=== PATIENT | male | born 1975 | race Caucasian/White ===

== ENCOUNTER 2017-02-07 18:25 | Emergency (ER) ==
[2017-02-07 18:31] VITALS: BP 157/89; TEMP 98.1; BMI 31.3
--- NOTE | 2017-02-07 18:43 | ED.PDOC ---
General ED Provider: Dr. VANESSA CAMPBELL Chief Complaint: Foot Pain/Injury Stated Complaint: RIGHT FOOT PAIN Time Seen by Physician: 18:30 (RN AT BEDSIDE AT ALL TIMES) Mode of Arrival: Walk-In Information Source: Patient Exam Limitations: No limitations Nursing and Triage Documentation Reviewed and Agree: Yes Musculoskeletal Complaint Exam - Ankle/Foot Complaint/Exam Location of Injury: Reports: Right, Foot Mechanism of Injury: Reports: Trauma (BLUNT FORCE) Onset/Duration: KICKED SOMETHING IN THE POOL HAS PAINX 2 DAYS Symptoms Are: Reports: Still present Onset of Pain: Reports: Immediate Initial Severity: Mild Current Severity: Mild Location: Reports: Discrete (BIG TOE DORAL FOOT ANKLE NOT INVOLVED ) Character: Reports: Dull Alleviating: Reports: Rest, Position Aggravating: Reports: Movement Able to Bear Weight: Yes Associated Signs and Symptoms: Denies: Swelling, Redness, Bruising, Fever, Weakness, Numbness, Tingling Achilles Tendon Abnormality: No Differential Diagnosis: Closed Fracture, Sprain, Strain Review of Systems - Review Of Systems Constitutional: Reports: No symptoms Eyes: Reports: No symptoms Ears, Nose, Mouth, Throat: Reports: No symptoms Respiratory: Reports: No symptoms Cardiac: Reports: No symptoms GI: Reports: No symptoms : Reports: No symptoms Musculoskeletal: Reports: Other (FOOT PAIN) Skin: Reports: No symptoms Neurological: Reports: No symptoms Endocrine: Reports: No symptoms Hematologic/Lymphatic: Reports: No symptoms All Other Systems: Reviewed and Negative Past Medical History - Past Medical History Previously Healthy: Yes Endocrine: Reports: None Cardiovascular: Reports: None Respiratory: Reports: None Hematological: Reports: None Gastrointestinal: Reports: None Genitourinary: Reports: None Neuro/Psych: Reports: None Musculoskeletal: Reports: None Cancer: Reports: None - Surgical History General Surgical History: Reports: None - Family History Family History: Reports: None - Social History Smoking Status: Current every day smoker, Heavy tobacco smoker Hx Substance Use: No Alcohol Screening: Occasionally - Immunizations Tetanus Shot up to Date: (UNKNOWN) Physical Exam - Physical Exam Appearance: Well-appearing, No pain distress, Well-nourished Eyes: CARLOS, EOMI, Conjunctiva clear ENT: Ears normal, Nose normal, Oropharynx normal Respiratory: Airway patent, Breath sounds clear, Breath sounds equal, Respirations nonlabored Cardiovascular: RRR, Pulses normal, No rub, No murmur GI/: Soft, Nontender, No masses, Bowel sounds normal, No Organomegaly Musculoskeletal: Limited ROM (RIGHT FOOT) Skin: Warm, Dry, Normal color Neurological: Sensation intact, Motor intact, Reflexes intact, Cranial nerves intact, Alert, Oriented Psychiatric: Affect appropriate, Mood appropriate Critical Care Note - Critical Care Note Total Time (mins): 0 Course - Course Orders, Labs, Meds: Orders Category Date Time Status RIP [ED RIP WRAP] .ONCE EMERGENCY 02/07/17 18:40 Ordered FOOT, RIGHT 3 VIEWS Stat RADS 02/07/17 18:40 Ordered Vital Signs: Temp Pulse Resp BP Pulse Ox 02/07/17 18:26 98.1 F 71 18 157/89 H 94 L Departure - Departure Time of Disposition: 18:44 Disposition: HOME SELF-CARE Discharge Problem: Right foot pain Instructions: Arthralgia (ED) Condition: Good Pt referred to PMD for follow-up: Yes Additional Instructions: Please call your Family Physician as soon as possible to schedule a follow-up appointment. NO WEIGHT BEARING USE YOUR CRUTCHED YOU NOTED THAT YOU HAVE THEM AT HOME SEE YOUR MD PASHA Prescriptions: Hydrocodone/Acetaminophen [[place] 10-325 Tablet] 1 each PO Q8HR #7 tablet Allergies/Adverse Reactions: Allergies No Known Allergies Allergy (Unverified 02/07/17 18:35) Home Medications: Ambulatory Orders Hydrocodone/Acetaminophen [[place] 10-325 Tablet] 1 each PO Q8HR #7 tablet Omeprazole 20 mg PO DAILY 02/07/17 Disposition Discussed With: Patient, Family
--- NOTE | 2017-02-07 19:42 | DI ---
EXAM: Radiographs, right foot HISTORY: Initial presentation for right foot trauma. COMPARISON: None available. TECHNIQUE: Three views. FINDINGS: Bone mineralization is normal. There is no fracture or dislocation. The joint spaces ar e maintained. No focal soft tissue abnormality is seen. IMPRESSION: No fracture or dislocation.
== END 2017-02-07 19:49 | disposition home or self-care (01) ==
LOC: ED 18:25
DX: M79.671 Pain in right foot (principal); W22.8XXA Striking against or struck by other objects, initial encounter; F17.210 Nicotine dependence, cigarettes, uncomplicated
CPT/HCPCS: 99282